=== PATIENT | male | born 1960 | race Caucasian/White ===

== ENCOUNTER 2021-11-11 11:33 | Emergency (ER) | payer OTHER ==
[2021-11-11] MEDS ORDERED: CEPHALEXIN500 M1 PO (14:09)
[2021-11-11] MEDS ORDERED: NAPROSYN500 MG PO (14:09)
== END 2021-11-11 14:29 | disposition home or self-care (01) ==
LOC: ER1 11:33
DX: S62.631B Displaced fracture of distal phalanx of left index finger, initial encounter for open fracture (principal); S62.633B Displaced fracture of distal phalanx of left middle finger, initial encounter for open fracture; S56.402A Unspecified injury of extensor muscle, fascia and tendon of left index finger at forearm level, initial encounter; S56.404A Unspecified injury of extensor muscle, fascia and tendon of left middle finger at forearm level, initial encounter; X58.XXXA Exposure to other specified factors, initial encounter
CPT/HCPCS: 73130; 90471; 90715; 96374; 96375; 99283; J0690; J1885